=== PATIENT | female | born 1955 | race Caucasian/White ===

== ENCOUNTER 2018-10-08 13:55 | Outpatient (CLI) | payer OTHER ==
[~2018-10-08 13:55] MED LIST: BIAXIN500 MG PO
== END 2018-10-08 14:03 | disposition home or self-care (01) ==
LOC: RAD 13:55
DX: M54.6 Pain in thoracic spine (principal)

== ENCOUNTER 2018-12-24 14:29 | Outpatient (CLI) | payer OTHER | END 2018-12-24 14:31 | disposition home or self-care (01) | LOC: SONOGRAMA 14:29 | DX: M54.2 Cervicalgia (principal) ==

== ENCOUNTER 2020-01-07 10:46 | Outpatient (CLI) | payer OTHER | END 2020-01-07 10:59 | disposition home or self-care (01) | LOC: RAD 10:46 | PROVIDERS: ATTEND Physical Medicine & Rehabilitation | DX: M75.111 Incomplete rotator cuff tear or rupture of right shoulder, not specified as traumatic (principal); M75.31 Calcific tendinitis of right shoulder ==

== ENCOUNTER 2021-04-27 14:50 | Outpatient (CLI) | payer OTHER | END 2021-04-27 14:59 | disposition home or self-care (01) | LOC: SONOGRAMA 14:50 | PROVIDERS: ATTEND Family Medicine | DX: M25.561 Pain in right knee (principal) ==

== ENCOUNTER 2022-07-21 14:31 | Outpatient (CLI) | payer OTHER | END 2022-07-21 14:48 | disposition home or self-care (01) | LOC: RAD 14:31 | DX: M25.561 Pain in right knee (principal) ==

== ENCOUNTER 2023-04-11 11:35 | Emergency (ER) | payer OTHER ==
[~2023-04-11] VITALS: Ht 162.6 cm; Wt 61.7 kg
== END 2023-04-11 12:57 | disposition home or self-care (01) ==
LOC: ER 11:35
DX: Z48.02 Encounter for removal of sutures (principal)

== ENCOUNTER 2024-06-12 10:38 | Outpatient (CLI) | payer OTHER | END 2024-06-12 10:50 | disposition home or self-care (01) | LOC: MAMO-SONO 10:38 | PROVIDERS: ATTEND Family Medicine | DX: N60.11 Diffuse cystic mastopathy of right breast (principal); N60.12 Diffuse cystic mastopathy of left breast ==

== ENCOUNTER → 2025-06-02 10:45 | Outpatient (CLI) | payer OTHER | END | disposition home or self-care (01) | LOC: NUCLEAR 05-26 10:00 | PROVIDERS: ATTEND Family Medicine | DX: I34.1 Nonrheumatic mitral (valve) prolapse (principal) ==